=== PATIENT | male | born 1975 | race Caucasian/White ===

== ENCOUNTER 2021-09-29 10:21 | Inpatient (IN) | payer OTHER ==
[2021-09-29 11:19] VITALS: BMI 28.4
[2021-09-29] MEDS ORDERED: ACETAMINOPHEN 325 MG TABLET (FP) PO PRN ×2 (12:01)
[2021-09-29] MEDS ORDERED: MAGNESIUM HYDROX 2400MG/30ML ORAL SUSPENSION 30 ML CUP PO PRN (12:01)
[2021-09-29] MEDS ORDERED: DICYCLOMINE HCL 10 MG CAPSULE PO PRN (12:01)
[2021-09-29] MEDS ORDERED: MAGNESIUM CITRATE 300 ML BOTTLE PO PRN (12:01)
[2021-09-29] MEDS ORDERED: MAG HYDROX/AL HYDROX/SIMETH 30 ML UNIT-DOSE CUP PO PRN (12:01)
[2021-09-29] MEDS ORDERED: NALOXONE HCL 0.4 MG/ML VIAL IM PRN (12:01)
[2021-09-29] MEDS ORDERED: chlordiazePOXIDE HCL 25 MG CAPSULE PO PRN (12:01)
[2021-09-29] MEDS ORDERED: BENZOCAINE/MENTHOL (CHLORASEPTIC ) LOZENGE MM PRN (12:01)
[2021-09-29] MEDS ORDERED: METHOCARBAMOL 500 MG TABLET PO PRN (12:01)
[2021-09-29] MEDS ORDERED: BISMUTH SUBSALICYLATE 524 MG/30 ML PO PRN (12:01)
[2021-09-29] MEDS ORDERED: IBUPROFEN 400 MG TABLET (FP) PO PRN (12:01)
[2021-09-29] MEDS ORDERED: LOPERAMIDE HCL 2 MG CAPSULE PO PRN (12:01)
[2021-09-29] MEDS ORDERED: ONDANSETRON *ODT* 4 MG TABLET SL PRN (12:01)
[2021-09-29] MEDS: hydrOXYzine PAMOATE 25 MG CAPSULE (FP) PO SCH ×3 (13:50→22:31)
[2021-09-29] MEDS: chlordiazePOXIDE HCL 25 MG CAPSULE PO SCH ×2 (17:56→22:31)
[2021-09-29] MEDS: MELATONIN 5 MG TABLETS PO SCH (22:31)
[2021-09-29] MEDS: THIAMINE HCL 100 MG TABLET (FP) PO SCH (22:31)
[2021-09-29] MEDS: traZODone HCL 100 MG TABLET (FP) PO PRN (22:34)
[2021-09-30] MEDS: chlordiazePOXIDE HCL 25 MG CAPSULE PO SCH ×4 (05:41→22:28)
[2021-09-30] MEDS: hydrOXYzine PAMOATE 25 MG CAPSULE (FP) PO SCH ×5 (05:41→22:28)
[2021-09-30] MEDS: PRENATAL VITAMINS W/ FOLIC ACID TABLET (FP) PO SCH (10:28)
[2021-09-30 11:04] LABS: HEMATOCRIT 43.9 % (35.4-49); HEMOGLOBIN 14.5 GM/dL (11.7-16.9); MCH 31.2 pg (25.7-33.7); MCHC 33.1 g/dl (32.0-35.9); MEAN CELL VOLUME 94.2 fl (80-96); PLATELET COUNT 60 10^3/uL (134-434); RBC 4.66 M/mm3 (4.00-5.60); RDW 13.7 % (11.9-15.9); WHITE BLOOD COUNT 4.3 K/mm3 (4.0-10.0)
[2021-09-30 11:45] LABS: BLOOD UREA NITROGEN 11.5 mg/dL (7-18); CALCIUM 9.5 mg/dL (8.5-10.1)
[2021-09-30 11:47] LABS: CREATININE 0.8 mg/dL (0.55-1.3)
[2021-09-30 11:49] LABS: BILIRUBIN,TOTAL 0.9 mg/dL (0.2-1); TOT PROT 7.6 g/dl (6.4-8.2)
[2021-09-30] MEDS: amLODIPine BESYLATE 10 MG TABLET (FP) PO SCH (12:41)
[2021-09-30] MEDS: ATORVASTATIN CA 80 MG TABLET (FP) PO SCH (12:41)
[2021-09-30] MEDS: traZODone HCL 100 MG TABLET (FP) PO PRN (22:28)
[2021-09-30] MEDS: THIAMINE HCL 100 MG TABLET (FP) PO SCH (22:28)
[2021-09-30] MEDS: MELATONIN 5 MG TABLETS PO SCH (22:28)
[2021-10-01] MEDS: hydrOXYzine PAMOATE 25 MG CAPSULE (FP) PO SCH ×5 (06:21→22:36)
[2021-10-01] MEDS: chlordiazePOXIDE HCL 25 MG CAPSULE PO SCH ×4 (06:21→22:36)
[2021-10-01] MEDS: PRENATAL VITAMINS W/ FOLIC ACID TABLET (FP) PO SCH (10:12)
[2021-10-01] MEDS: amLODIPine BESYLATE 10 MG TABLET (FP) PO SCH (10:12)
[2021-10-01] MEDS: ATORVASTATIN CA 80 MG TABLET (FP) PO SCH (10:12)
[2021-10-01 17:07] LABS: SARS-CoV-2 NAA Not Detected (Not Detected)
[2021-10-01] MEDS: NICOTINE 10 MG CARTRIDGE (INHALER) IH PRN (21:37)
[2021-10-01] MEDS: traZODone HCL 100 MG TABLET (FP) PO PRN (22:36)
[2021-10-01] MEDS: MELATONIN 5 MG TABLETS PO SCH (22:36)
[2021-10-01] MEDS: THIAMINE HCL 100 MG TABLET (FP) PO SCH (22:36)
[2021-10-02] MEDS ORDERED: chlordiazePOXIDE HCL 10 MG CAPSULE PO PRN
[2021-10-02] MEDS: hydrOXYzine PAMOATE 25 MG CAPSULE (FP) PO SCH ×5 (05:55→22:17)
[2021-10-02] MEDS: chlordiazePOXIDE HCL 10 MG CAPSULE PO SCH ×4 (05:55→22:19)
[2021-10-02] MEDS: NICOTINE 10 MG CARTRIDGE (INHALER) IH PRN ×5 (05:57→22:21)
[2021-10-02] MEDS: ATORVASTATIN CA 80 MG TABLET (FP) PO SCH (10:01)
[2021-10-02] MEDS: amLODIPine BESYLATE 10 MG TABLET (FP) PO SCH (10:01)
[2021-10-02] MEDS: PRENATAL VITAMINS W/ FOLIC ACID TABLET (FP) PO SCH (10:02)
[2021-10-02] MEDS: MELATONIN 5 MG TABLETS PO SCH (22:16)
[2021-10-02] MEDS: THIAMINE HCL 100 MG TABLET (FP) PO SCH (22:17)
[2021-10-02] MEDS: traZODone HCL 100 MG TABLET (FP) PO PRN (22:17)
[2021-10-03] MEDS: chlordiazePOXIDE HCL 10 MG CAPSULE PO SCH ×2 (05:59→17:54)
[2021-10-03] MEDS: hydrOXYzine PAMOATE 25 MG CAPSULE (FP) PO SCH ×5 (05:59→22:07)
[2021-10-03] MEDS: NICOTINE 10 MG CARTRIDGE (INHALER) IH PRN ×5 (05:59→22:08)
[2021-10-03] MEDS: PRENATAL VITAMINS W/ FOLIC ACID TABLET (FP) PO SCH (09:40)
[2021-10-03] MEDS: ATORVASTATIN CA 80 MG TABLET (FP) PO SCH (09:40)
[2021-10-03] MEDS: amLODIPine BESYLATE 10 MG TABLET (FP) PO SCH (09:40)
[2021-10-03] MEDS: THIAMINE HCL 100 MG TABLET (FP) PO SCH (22:07)
[2021-10-03] MEDS: MELATONIN 5 MG TABLETS PO SCH (22:07)
[2021-10-03] MEDS: traZODone HCL 100 MG TABLET (FP) PO PRN (22:07)
[2021-10-04] MEDS ORDERED: chlordiazePOXIDE HCL 10 MG CAPSULE PO ONE (05:00)
[2021-10-04] MEDS: hydrOXYzine PAMOATE 25 MG CAPSULE (FP) PO SCH (06:07)
[2021-10-04 08:59] VITALS: BP 108/72; PULSE 99; TEMP 97.5
== END 2021-10-04 09:21 | disposition home or self-care (01) | DRG 775 ==
LOC: YASAS 10:21 → Y3N 12:42
PROVIDERS: ADMIT Allergy & Immunology; ATTEND Allergy & Immunology
PROC: HZ2ZZZZ Detoxification Services for Substance Abuse Treatment (ICD-10-PCS; principal; 2021-09-29)
DX: F10.230 Alcohol dependence with withdrawal, uncomplicated (principal); F12.20 Cannabis dependence, uncomplicated; F17.210 Nicotine dependence, cigarettes, uncomplicated; F10.282 Alcohol dependence with alcohol-induced sleep disorder; F41.9 Anxiety disorder, unspecified; F32.A Depression, unspecified; E78.5 Hyperlipidemia, unspecified; I10 Essential (primary) hypertension; Z86.73 Personal history of transient ischemic attack (TIA), and cerebral infarction without residual deficits; Z91.51 Personal history of suicidal behavior
CPT/HCPCS: 36415; 80053; 85027; 86780; 87811; 93005; 93010; C9803-CS; U0003; U0005

== ENCOUNTER 2021-11-03 09:43 | Inpatient (IN) | payer OTHER ==
[2021-11-03 10:38] VITALS: BMI 31.7
[2021-11-03] MEDS ORDERED: BENZOCAINE/MENTHOL (CHLORASEPTIC ) LOZENGE MM PRN (11:08)
[2021-11-03] MEDS ORDERED: NICOTINE 10 MG CARTRIDGE (INHALER) IH PRN (11:08)
[2021-11-03] MEDS ORDERED: METHOCARBAMOL 500 MG TABLET PO PRN (11:08)
[2021-11-03] MEDS ORDERED: IBUPROFEN 400 MG TABLET (FP) PO PRN (11:08)
[2021-11-03] MEDS ORDERED: MAG HYDROX/AL HYDROX/SIMETH 30 ML UNIT-DOSE CUP PO PRN (11:08)
[2021-11-03] MEDS ORDERED: IBUPROFEN 600 MG TABLET (FP) PO PRN (11:08)
[2021-11-03] MEDS ORDERED: ONDANSETRON *ODT* 4 MG TABLET SL PRN (11:08)
[2021-11-03] MEDS ORDERED: DICYCLOMINE HCL 10 MG CAPSULE PO PRN (11:08)
[2021-11-03] MEDS ORDERED: MAGNESIUM CITRATE 300 ML BOTTLE PO PRN (11:08)
[2021-11-03] MEDS ORDERED: LOPERAMIDE HCL 2 MG CAPSULE PO PRN (11:08)
[2021-11-03] MEDS ORDERED: BISMUTH SUBSALICYLATE 262 MG/15 ML BTL PO PRN (11:08)
[2021-11-03] MEDS ORDERED: MAGNESIUM HYDROX 2400MG/30ML ORAL SUSPENSION 30 ML CUP PO PRN (11:08)
[2021-11-03] MEDS ORDERED: ACETAMINOPHEN 325 MG TABLET (FP) PO PRN ×2 (11:08)
[2021-11-03] MEDS ORDERED: chlordiazePOXIDE HCL 25 MG CAPSULE ONE (11:56)
[2021-11-03] MEDS: chlordiazePOXIDE HCL 25 MG CAPSULE PO PRN ×2 (12:10→20:08)
[2021-11-03] MEDS ORDERED: cloNIDine HCL 0.1 MG TABLET PO ONE (12:21)
[2021-11-03] MEDS: PRENATAL VITAMINS W/ FOLIC ACID TABLET (FP) PO SCH (12:59)
[2021-11-03] MEDS: hydrOXYzine PAMOATE 25 MG CAPSULE (FP) PO SCH ×3 (13:40→22:19)
[2021-11-03 13:53] LABS: HEMATOCRIT 43.4 % (35.4-49); HEMOGLOBIN 14.5 GM/dL (11.7-16.9); MCH 30.3 pg (25.7-33.7); MCHC 33.5 g/dl (32.0-35.9); MEAN CELL VOLUME 90.6 fl (80-96); MEAN PLT VOLUME 10.3 fl (7.5-11.1); PLATELET COUNT 100 10^3/uL (134-434); RBC 4.79 M/mm3 (4.00-5.60); RDW 14.6 % (11.9-15.9)
[2021-11-03 14:21] LABS: ALBUMIN 4.1 g/dl (3.4-5.0)
[2021-11-03 14:23] LABS: BLOOD UREA NITROGEN 8.3 mg/dL (7-18)
[2021-11-03 14:24] LABS: CALCIUM 7.9 mg/dL (8.5-10.1)
[2021-11-03 14:25] LABS: CREATININE 0.6 mg/dL (0.55-1.3)
[2021-11-03 14:26] LABS: BILIRUBIN,TOTAL 0.9 mg/dL (0.2-1); TOT PROT 7.5 g/dl (6.4-8.2)
[2021-11-03] MEDS: chlordiazePOXIDE HCL 25 MG CAPSULE PO SCH ×2 (17:56→22:20)
[2021-11-03] MEDS: THIAMINE HCL 100 MG TABLET (FP) PO SCH (22:19)
[2021-11-03] MEDS: MELATONIN 5 MG TABLETS PO SCH (22:19)
[2021-11-03] MEDS: traZODone HCL 50 MG TABLET (FP) PO SCH (22:20)
[2021-11-04] MEDS: chlordiazePOXIDE HCL 25 MG CAPSULE PO SCH ×4 (05:25→22:16)
[2021-11-04] MEDS: hydrOXYzine PAMOATE 25 MG CAPSULE (FP) PO SCH ×5 (05:26→22:16)
[2021-11-04] MEDS: amLODIPine BESYLATE 10 MG TABLET (FP) PO SCH (10:12)
[2021-11-04] MEDS: PRENATAL VITAMINS W/ FOLIC ACID TABLET (FP) PO SCH (10:13)
[2021-11-04] MEDS: chlordiazePOXIDE HCL 25 MG CAPSULE PO PRN (15:10)
[2021-11-04] MEDS: THIAMINE HCL 100 MG TABLET (FP) PO SCH (22:16)
[2021-11-04] MEDS: traZODone HCL 50 MG TABLET (FP) PO SCH (22:16)
[2021-11-04] MEDS: MELATONIN 5 MG TABLETS PO SCH (22:16)
[2021-11-05] MEDS: hydrOXYzine PAMOATE 25 MG CAPSULE (FP) PO SCH ×5 (05:54→22:09)
[2021-11-05] MEDS: chlordiazePOXIDE HCL 25 MG CAPSULE PO SCH ×4 (05:55→22:09)
[2021-11-05] MEDS: amLODIPine BESYLATE 10 MG TABLET (FP) PO SCH (10:16)
[2021-11-05] MEDS: PRENATAL VITAMINS W/ FOLIC ACID TABLET (FP) PO SCH (10:17)
[2021-11-05 10:50] LABS: CALCIUM 8.8 mg/dL (8.5-10.1)
[2021-11-05 10:52] LABS: BLOOD UREA NITROGEN 8.7 mg/dL (7-18)
[2021-11-05 10:54] LABS: CREATININE 0.7 mg/dL (0.55-1.3)
[2021-11-05] MEDS ORDERED: POTASSIUM CHLORIDE TABS 20 MEQ TABLET.ER (FP) PO ONE ×2 (11:53→13:56)
[2021-11-05] MEDS: THIAMINE HCL 100 MG TABLET (FP) PO SCH (22:09)
[2021-11-05] MEDS: MELATONIN 5 MG TABLETS PO SCH (22:09)
[2021-11-05] MEDS: traZODone HCL 50 MG TABLET (FP) PO SCH (22:10)
[2021-11-06] MEDS ORDERED: chlordiazePOXIDE HCL 10 MG CAPSULE PO PRN
[2021-11-06] MEDS: chlordiazePOXIDE HCL 10 MG CAPSULE PO SCH ×2 (06:03→10:32)
[2021-11-06] MEDS: hydrOXYzine PAMOATE 25 MG CAPSULE (FP) PO SCH ×2 (06:03→09:42)
[2021-11-06 09:15] VITALS: BP 99/59; PULSE 79; TEMP 98
[2021-11-06] MEDS: amLODIPine BESYLATE 10 MG TABLET (FP) PO SCH (09:42)
[2021-11-06] MEDS: PRENATAL VITAMINS W/ FOLIC ACID TABLET (FP) PO SCH (09:42)
[2021-11-07] MEDS ORDERED: chlordiazePOXIDE HCL 10 MG CAPSULE PO SCH (05:00)
[2021-11-08] MEDS ORDERED: chlordiazePOXIDE HCL 10 MG CAPSULE PO ONE (05:00)
== END 2021-11-06 09:30 | disposition left against medical advice (07) | DRG 770 ==
LOC: YASAS 09:43 → Y3N 11:35
PROVIDERS: ADMIT Allergy & Immunology; ATTEND Surgery
PROC: HZ2ZZZZ Detoxification Services for Substance Abuse Treatment (ICD-10-PCS; principal; 2021-11-03)
DX: F10.230 Alcohol dependence with withdrawal, uncomplicated (principal); F17.210 Nicotine dependence, cigarettes, uncomplicated; F10.282 Alcohol dependence with alcohol-induced sleep disorder; D69.6 Thrombocytopenia, unspecified; G62.9 Polyneuropathy, unspecified; E87.6 Hypokalemia; E78.5 Hyperlipidemia, unspecified; I10 Essential (primary) hypertension; Z86.73 Personal history of transient ischemic attack (TIA), and cerebral infarction without residual deficits
CPT/HCPCS: 36415; 80048; 80053; 85027; 86780; 87811; C9803-CS; J0735; U0003; U0005

== ENCOUNTER 2022-09-20 13:34 | Inpatient (IN) | payer OTHER ==
[2022-09-20 14:05] VITALS: BMI 29.1
[2022-09-20] MEDS ORDERED: ONDANSETRON *ODT* 4 MG TABLET SL PRN (16:00)
[2022-09-20] MEDS ORDERED: MAGNESIUM HYDROX 2400MG/30ML ORAL SUSPENSION 30 ML CUP PO PRN (16:00)
[2022-09-20] MEDS ORDERED: MELATONIN 5 MG TABLETS PO PRN (16:00)
[2022-09-20] MEDS ORDERED: LORazepam 2 MG/ML SDV VIAL IM ONE (16:00)
[2022-09-20] MEDS ORDERED: POLYETHYLENE GLYCOL (HEALTHYLAX) 3350 17 GM PACKET PO PRN (16:00)
[2022-09-20] MEDS ORDERED: ACETAMINOPHEN 325 MG TABLET (FP) PO PRN (16:00)
[2022-09-20] MEDS ORDERED: MAG HYDROX/AL HYDROX/SIMETH 30 ML UNIT-DOSE CUP PO PRN (16:00)
[2022-09-20] MEDS ORDERED: DICYCLOMINE HCL 10 MG CAPSULE PO PRN (16:00)
[2022-09-20] MEDS ORDERED: guaiFENesin 600 MG TABLET.ER (FP) PO PRN (16:00)
[2022-09-20] MEDS ORDERED: BENZOCAINE/MENTHOL (CHLORASEPTIC ) LOZENGE MM PRN (16:00)
[2022-09-20] MEDS ORDERED: LOPERAMIDE HCL 2 MG CAPSULE PO PRN (16:00)
[2022-09-20] MEDS ORDERED: IBUPROFEN 400 MG TABLET (FP) PO PRN (16:00)
[2022-09-20] MEDS ORDERED: IBUPROFEN 600 MG TABLET (FP) PO PRN (16:00)
[2022-09-20] MEDS ORDERED: METOPROLOL TARTRATE 25 MG TABLET (FP) PO ONE (16:00)
[2022-09-20] MEDS ORDERED: BENZONATATE 200 MG CAPSULE PO PRN (16:00)
[2022-09-20] MEDS ORDERED: TRIMETHOBENZAMIDE HCL 200MG/2ML INJ IM ONE ×2 (16:00→16:34)
[2022-09-20] MEDS ORDERED: P-EPHED 60MG/TRIPROLIDI 2.5MG TABLET PO PRN (16:00)
[2022-09-20] MEDS ORDERED: BISMUTH SUBSALICYLATE 524 MG/30 ML PO PRN (16:00)
[2022-09-20] MEDS ORDERED: METOPROLOL TARTRATE 25 MG TABLET (FP) ONE (16:32)
[2022-09-20] MEDS ORDERED: chlordiazePOXIDE HCL 25 MG CAPSULE ONE (16:33)
[2022-09-20] MEDS: chlordiazePOXIDE HCL 25 MG CAPSULE PO SCH ×2 (16:48→23:21)
[2022-09-20] MEDS: levETIRAcetam 500 MG TABLET (FP) PO SCH (23:40)
[2022-09-20] MEDS: ATORVASTATIN CA 80 MG TABLET (FP) PO SCH (23:46)
[2022-09-20] MEDS: THIAMINE HCL 100 MG TABLET (FP) PO SCH (23:48)
[2022-09-21] MEDS: chlordiazePOXIDE HCL 25 MG CAPSULE PO SCH ×4 (05:51→22:05)
[2022-09-21] MEDS: PRENATAL VITAMINS W/ FOLIC ACID TABLET (FP) PO SCH (10:20)
[2022-09-21] MEDS: FOLIC ACID 1 MG TABLET (FP) PO SCH (10:20)
[2022-09-21] MEDS: levETIRAcetam 500 MG TABLET (FP) PO SCH ×2 (10:20→22:05)
[2022-09-21] MEDS: amLODIPine BESYLATE 10 MG TABLET (FP) PO SCH (10:20)
[2022-09-21 12:09] LABS: HEMATOCRIT 40.1 % (35.4-49); HEMOGLOBIN 13.9 GM/dL (11.7-16.9); MCH 31.2 pg (25.7-33.7); MCHC 34.6 g/dl (32.0-35.9); MEAN CELL VOLUME 90.2 fl (80-96); MEAN PLT VOLUME 10.4 fl (7.5-11.1); PLATELET COUNT 55 10^3/uL (134-434); RBC 4.44 M/mm3 (4.00-5.60); RDW 19.5 % (11.9-15.9); WHITE BLOOD COUNT 3.5 K/mm3 (4.0-10.0)
[2022-09-21 12:16] LABS: ALBUMIN 3.6 g/dl (3.4-5.0); BLOOD UREA NITROGEN 7.5 mg/dL (7-18); CALCIUM 8.7 mg/dL (8.5-10.1)
[2022-09-21 12:19] LABS: CREATININE 0.7 mg/dL (0.55-1.3)
[2022-09-21 12:21] LABS: BILIRUBIN,TOTAL 1.9 mg/dL (0.2-1)
[2022-09-21] MEDS: chlordiazePOXIDE HCL 25 MG CAPSULE PO PRN (13:32)
[2022-09-21] MEDS: traZODone HCL 50 MG TABLET (FP) PO PRN (22:04)
[2022-09-21] MEDS: ATORVASTATIN CA 80 MG TABLET (FP) PO SCH (22:04)
[2022-09-21] MEDS: hydrOXYzine PAMOATE 25 MG CAPSULE (FP) PO PRN (22:05)
[2022-09-21] MEDS: THIAMINE HCL 100 MG TABLET (FP) PO SCH (22:05)
[2022-09-22] MEDS: chlordiazePOXIDE HCL 25 MG CAPSULE PO SCH ×4 (05:44→23:15)
[2022-09-22] MEDS: FOLIC ACID 1 MG TABLET (FP) PO SCH (10:35)
[2022-09-22] MEDS: PRENATAL VITAMINS W/ FOLIC ACID TABLET (FP) PO SCH (10:35)
[2022-09-22] MEDS: levETIRAcetam 500 MG TABLET (FP) PO SCH ×2 (10:35→22:08)
[2022-09-22] MEDS: amLODIPine BESYLATE 10 MG TABLET (FP) PO SCH (10:35)
[2022-09-22] MEDS: THIAMINE HCL 100 MG TABLET (FP) PO SCH (22:08)
[2022-09-22] MEDS: ATORVASTATIN CA 80 MG TABLET (FP) PO SCH (22:08)
[2022-09-22] MEDS: chlordiazePOXIDE HCL 25 MG CAPSULE PO PRN (22:09)
[2022-09-22] MEDS: traZODone HCL 50 MG TABLET (FP) PO PRN (22:09)
[2022-09-23] MEDS ORDERED: chlordiazePOXIDE HCL 10 MG CAPSULE PO PRN
[2022-09-23] MEDS: chlordiazePOXIDE HCL 10 MG CAPSULE PO SCH ×4 (05:52→22:18)
[2022-09-23] MEDS: levETIRAcetam 500 MG TABLET (FP) PO SCH ×2 (10:49→22:17)
[2022-09-23] MEDS: PRENATAL VITAMINS W/ FOLIC ACID TABLET (FP) PO SCH (10:49)
[2022-09-23] MEDS: FOLIC ACID 1 MG TABLET (FP) PO SCH (10:49)
[2022-09-23] MEDS: amLODIPine BESYLATE 10 MG TABLET (FP) PO SCH (10:49)
[2022-09-23] MEDS: traZODone HCL 50 MG TABLET (FP) PO PRN (22:17)
[2022-09-23] MEDS: ATORVASTATIN CA 80 MG TABLET (FP) PO SCH (22:17)
[2022-09-23] MEDS: THIAMINE HCL 100 MG TABLET (FP) PO SCH (22:18)
[2022-09-24] MEDS: chlordiazePOXIDE HCL 10 MG CAPSULE PO SCH ×2 (05:53→17:38)
[2022-09-24] MEDS: PRENATAL VITAMINS W/ FOLIC ACID TABLET (FP) PO SCH (10:39)
[2022-09-24] MEDS: levETIRAcetam 500 MG TABLET (FP) PO SCH ×2 (10:40→21:54)
[2022-09-24] MEDS: FOLIC ACID 1 MG TABLET (FP) PO SCH (10:40)
[2022-09-24] MEDS: amLODIPine BESYLATE 10 MG TABLET (FP) PO SCH (10:42)
[2022-09-24] MEDS: THIAMINE HCL 100 MG TABLET (FP) PO SCH (21:53)
[2022-09-24] MEDS: ATORVASTATIN CA 80 MG TABLET (FP) PO SCH (21:53)
[2022-09-24] MEDS: hydrOXYzine PAMOATE 25 MG CAPSULE (FP) PO PRN (21:54)
[2022-09-24] MEDS: traZODone HCL 50 MG TABLET (FP) PO PRN (21:54)
[2022-09-25] MEDS ORDERED: chlordiazePOXIDE HCL 10 MG CAPSULE PO ONE (05:00)
[2022-09-25] MEDS: hydrOXYzine PAMOATE 25 MG CAPSULE (FP) PO PRN (07:14)
[2022-09-25 09:11] VITALS: BP 110/79; PULSE 109; RESP 17; TEMP 97.1
[2022-09-25 11:16] LABS: ALBUMIN 3.5 g/dl (3.4-5.0); BLOOD UREA NITROGEN 12.2 mg/dL (7-18); CREATININE 0.8 mg/dL (0.55-1.3)
[2022-09-25 11:17] LABS: BILIRUBIN,TOTAL 0.7 mg/dL (0.2-1)
[2022-09-25 11:18] LABS: TOT PROT 6.7 g/dl (6.4-8.2)
[2022-09-25 11:19] LABS: CALCIUM 10.3 mg/dL (8.5-10.1)
== END 2022-09-25 09:38 | disposition home or self-care (01) | DRG 775 ==
LOC: YASAS 13:34 → Y3N 17:06
PROVIDERS: ADMIT Allergy & Immunology; ATTEND Surgery
PROC: HZ2ZZZZ Detoxification Services for Substance Abuse Treatment (ICD-10-PCS; principal; 2022-09-20)
DX: F10.230 Alcohol dependence with withdrawal, uncomplicated (principal); F41.9 Anxiety disorder, unspecified; F32.A Depression, unspecified; D69.6 Thrombocytopenia, unspecified; E87.8 Other disorders of electrolyte and fluid balance, not elsewhere classified; E78.2 Mixed hyperlipidemia; E87.1 Hypo-osmolality and hyponatremia; I10 Essential (primary) hypertension; R74.01 Elevation of levels of liver transaminase levels; Z87.891 Personal history of nicotine dependence
CPT/HCPCS: 36415; 80053; 85027; 86780; C9803-CS; Q0162; U0003; U0005